=== PATIENT | female | born 1945 ===

== ENCOUNTER 2022-08-22 08:50 | Outpatient (CLI) | payer OTHER | END 2022-08-22 08:54 | disposition home or self-care (01) | LOC: RX STUDY 08:50 | PROVIDERS: ATTEND Internal Medicine Gastroenterology | DX: R13.12 Dysphagia, oropharyngeal phase (principal) ==

== ENCOUNTER 2022-10-01 11:02 | Outpatient (CLI) | payer OTHER | END 2022-10-01 11:05 | disposition home or self-care (01) | LOC: SONOGRAMA 11:02 | PROVIDERS: ATTEND Pathology Anatomic Pathology & Clinical Pathology | DX: D34 Benign neoplasm of thyroid gland (principal); E04.9 Nontoxic goiter, unspecified; E07.9 Disorder of thyroid, unspecified ==